=== PATIENT | male | born 1970 | race Asian ===

== ENCOUNTER 2025-07-22 09:07 | Emergency (ER) | payer MEDICAID, SELFPAY ==
--- NOTE | 2025-07-22 09:48 | XR_ITS ---
Examination: CT brain head without contrast. 2-D sagittal coronal reconstructions Date and time of exam: June 22, 2025, 10:15 a.m. INDICATIONS: Onset headache today CTDI: vol (mGy): 55.3 DLP: (mGycm): 1213 Technique: Multiple CT axial sections of the brain have been obtained, 5 mm slice thickness. Contrast has not been administered. 2-D sagittal, coronal reconstructions have been obtained Low dose protocols were performed. One or more of the following dose reduction techniques were used; automated exposure control, adjustment of the mA and/or KV according to patient size, use of iterative reconstruction technique. Findings: No significant ventricular enlargement. Intra-axial or extra-axial hemorrhage density is not seen. No mass effect or midline shift Basal cisterns are not remarkable. Fourth ventricle is midline. Cranial vault intact. Impression: Negative for acute hemorrhage, mass effect or midline shift
--- NOTE | 2025-07-22 09:48 | XR_ITS ---
Examination: CT abdomen with intravenous contrast CT pelvis with intravenous contrast 2-D coronal reconstructions 2-D sagittal reconstructions Date and time of exam: July 22, 2025, 1522 hours INDICATIONS: Generalized abdominal pain today. CTDI: vol (mGy) 11 DLP: (mGycm) 735 Technique: Multiple axial sections of the abdomen and pelvis have been obtained. 64 slice high-resolution scanner used. 3 mm axial sections have been obtained, post intravenous injection 60 cc [id number] 2-D sagittal, coronal reconstructions obtained. Low dose protocols were performed. One or more of the following dose reduction techniques were used; automated exposure control, adjustment of the mA and/or KV according to patient size, use of iterative reconstruction technique. Findings: Fatty infiltration throughout the liver no focal liver or splenic lesions Tiny gallstone No pancreatic or adrenal mass No renal or ureteral calculi, no hydronephrosis Aorta normal size No bowel obstruction Normal appendix Colonic diverticulosis, no diverticulitis. Normal seminal vesicles No significant prostatomegaly Contracted urinary bladder, urinary bladder wall thickening up to 10 mm Prominent osteopenia IMPRESSION: No renal or ureteral calculi, no hydronephrosis Normal appendix Colonic diverticulosis, no diverticulitis Thickening of the urinary bladder wall, consider cystitis
[2025-07-22 09:49] VITALS: BP 142/79; PULSE 79; RESP 16; TEMP 36.9; O2SAT 97; BMI 30.7
--- NOTE | 2025-07-22 09:49 | PD.EDRME ---
Rapid Medical Screening Exam RME Arrival date/time: 07/22/25 09:07 54-year-old male presents to the emergency department today for multiple complaints including but not limited to headache, weight loss, abdominal pain Chief Complaint: Headache Vital signs reviewed by provider: Yes Exam: On exam well-appearing does not appear ill or toxic no acute distress Clinical Impression: Labs and imaging obtained
[2025-07-22 10:08] LABS: Collection Type, Urine Clean Catch
[2025-07-22 10:15] LABS: Basophils # (Auto) 0.1 Thou/mm3 (0.0-0.2); Basophils % (Auto) 1 % (0-2.5); Eosinophils # (Auto) 0.2 Thou/mm3 (0.0-0.5); Eosinophils % (Auto) 2 % (0-10); Hematocrit 42.6 % (41.0-53.0); Hemoglobin 14.3 g/dL (13.5-16.0); Immature Granulocytes Auto 0.04 Thou/mm3 (0.00-0.00); Lymphocytes # (Auto) 2.0 Thou/mm3 (1.0-4.8); Lymphocytes % (Auto) 18 % (10-50); Mean Corpuscular HGB Conc 33.6 g/dl (31.0-37.0); Mean Corpuscular Hemoglobin 29.7 pg (25.0-35.0); Mean Corpuscular Volume 88 fL (80-100); Monocytes # (Auto) 0.8 Thou/mm3 (0.0-0.8); Monocytes % (Auto) 7 % (0-12); Neutrophils # (Auto) 7.7 Thou/mm3 (1.8-7.7); Neutrophils % (Auto) 71 % (37-80); Nucleated Red Blood Cell # 0.00 Thou/mm3 (0.00-0.00); Nucleated Red Blood Cell % 0 /100 WBC (0); Platelet Count 341 Thou/mm3 (140-440); RDW Standard Deviation 38.3 fL (35.1-43.9); Red Blood Count 4.82 Miln/mm3 (4.50-5.90); White Blood Count 10.9 Thou/mm3 (3.8-10.6)
[2025-07-22 10:16] LABS: Bilirubin,Urine Negative (Negative); Blood,Urine Negative (Negative); Clarity,Urine Clear (Clear/Hazy); Color,Urine Yellow (Lt Yel-Yel); Culture Indicated,Urine Not Indicated; Glucose, Urine Negative (Negative); Ketones,Urine Negative (Negative); Leukocyte Esterase,Urine Negative (Negative); Nitrite,Urine Negative (Negative); PH,Urine 6.0 (5.0-7.0); Protein,Urine Trace (Neg - Trace); RBC,Urine 4 /hpf (0-3); Specific Gravity,Urine 1.025 (1.001-1.035); Squamous Epithelial Cell,Urine < 1 /hpf (0-5); Urobilinogen,Urine Negative mg/dL (0.0-1.0); WBC,Urine 1 /hpf (0-5)
--- NOTE | 2025-07-22 10:36 | XR_ITS ---
Examination: Duplex scan of the lower extremity, unilateral right Date and time of exam: July 22, 2025, 1108 hours INDICATIONS: Right leg pain beginning 1 week ago Technique: Duplex scan of the extremity veins using B-mode/grayscale imaging and Doppler spectral analysis and color flow Attention is directed to internal echogenicity, compression and augmentation involving these veins, color flow assessment, spectral analysis Findings: Positive for acute nonocclusive thrombus in the right popliteal and peroneal veins Positive for occlusive DVT in the right popliteal vein IMPRESSION: Significant acute deep vein thrombus as above
[2025-07-22 12:05] LABS: Alanine Aminotransferase 16 U/L (10-49); Albumin, Serum 5.2 gm/dL (3.5-5.0); Alkaline Phosphatase 57 U/L (46-116); Anion Gap 11 (7-16); Aspartate Amino Transferase 18 U/L (0-34); BUN/Creatinine Ratio 10 Ratio (12-20); Bilirubin,Total 0.7 mg/dL (0.3-1.2); Blood Urea Nitrogen 12 mg/dL (9-23); C-Reactive Protein 2.2 mg/dL (0.0-0.9); Calcium 9.7 mg/dL (8.3-10.6); Calcium (Corrected) 9.7 mg/dL (8.5-10.1); Carbon Dioxide 28.4 mMol/L (20.0-31.0); Chloride 102 mMol/L (98-107); Creatinine (Component) 1.2 mg/dL (0.6-1.3); Estimated Creatinine Clearance 85.3 mL/min (>60); Glucose 98 mg/dL (74-106); Lipase 39 U/L (12-53); Osmolality,Calculated 280 (275-295); Potassium 3.9 mMol/L (3.4-5.1); Sodium 141 mMol/L (136-145); eGFR > 60 See Note
[2025-07-22 12:52] LABS: Albumin/Globulin Ratio 1.4 (1.2-2.2); Globulin 3.6 gm/dL (2.3-3.5); Total Protein 8.8 gm/dL (5.7-8.2)
[2025-07-22 13:21] LABS: INR 1.0 (0.9-1.3); Partial Thromboplastin Time 27.1 Seconds (22.0-36.0); Prothrombin Time 10.8 Seconds (9.0-12.2)
[2025-07-22 13:42] VITALS: BP 150/90; PULSE 80; RESP 18; TEMP 36.7; O2SAT 100
[2025-07-22 15:00] VITALS: BP 142/78; PULSE 78; RESP 18; TEMP 36.7; O2SAT 96
--- NOTE | 2025-07-22 16:24 | EDNOTE_ITS ---
ED General RME/HPI General Chief complaint: Headache Stated complaint: DIFF EATING, R) CALF PAIN, HEADACHE, GOUT Time Seen by Provider: 07/22/25 10:37 Arrival date/time: 07/22/25 09:07 RME / HPI RME / HPI narrative: 07/22/25 09:07 54-year-old male presents to the emergency department today for multiple complaints including but not limited to headache, weight loss, abdominal pain DR. LISA MAIN ED EVALUATION 54 year old male with history of hypertension presents to the ED for evaluation of multiple complaints. Patient reports diffuse abdominal discomfort that is accompanied by decreased appetite and nausea (if eats more than 1 meal a day). Reports he has changed his diet to include more fruits and vegetable with no change in symptoms. Patient also complains of bilateral ankle pain also beginning two months ago. States the ankle pain first began in the left ankle and initially thought was sprained. However, noted several days later he began having the same pain in his right ankle. States the ankle pain is aggravated with moving his foot side to side. Adds since onset of ankle pain, he spends most of his day laying in bed or sitting due to the pain. Denies any associated ankle redness or increased warmth. No injury or trauma. Lastly, he also complains of a throbbing tightness pain to his right calf beginning 4 months ago after a deep tissue massage. States the pain had improved however returned 2 months ago. States the pain is aggravated with touching his calf. No known modifying factors. Denies any blood or black stools. Patient denies any urinary symptoms however does note several weeks ago he had a burning sensation in his urethra with very small amount of discharge that had improved. Exam: On exam well-appearing does not appear ill or toxic no acute distress Impression: Labs and imaging obtained Related Data Previous Rx's ?Medication ?Instructions ?Recorded albuterol sulfate 90 mcg/actuation 2 puff inhalation Q 6H PRN 09/23/17 breath activated powder inhaler shortness of breath or wheezing #1 ea apixaban 5 mg (74 tabs) tablets in 5 mg PO BID #74 tab s 07/22/25 a dose pack (Eliquis DVT-PE Treat 30D Start) Allergies Allergy/AdvReac Type Severity Reaction Status Date / Time No Known Allergies Allergy Verified 07/22/25 09:11 Review of Systems Review of Systems Systems Reviewed: All systems reviewed, normal except as documented Past Medical History Past Medical History CARDIAC: Positive Hypercholesterolemia and Hypertension RESPIRATORY: Positive Respiratory Disorders (inhalation of sulfuric acid) GASTROINTESTINAL: Positive Gastrointestinal Disorders and Hiatal Hernia (inguinal) MUSCULOSKELETAL: Positive Musculoskeletal Disorders (rotator cuff), Arthritis (mild) and Gout Social History SMOKING STATUS: Never smoker ED Exam Narrative Physical exam: GENERAL APPEARANCE: alert and oriented x 4, well-developed, well-nourished, no acute distress HEENT: Normocephalic, atraumatic; pupils equal, round, reactive to light; EOMI; mucous membranes pink, moist; oropharynx clear NECK: Supple LUNGS: CTABL; no wheezes, no rales, no rhonchi HEART: Regular rate, regular rhythm; normal S1, S2; no murmurs ABDOMEN: non distended; normal BS; soft, no tenderness, no guarding, no rebound; no masses, no organomegaly, no hernia BACK: no CVA tenderness EXTREMITIES: atraumatic; no edema NEUROLOGIC: awake; alert and oriented x4; cranial nerves II-XII grossly intact; no focal sensory or motor deficits PSYCHIATRIC: appropriate mood and affect SKIN: warm, dry, normal color; no rashes Course Quality Measures none Orders Category Date Time Status CT Screening NOW Care 07/22/25 09:[address] abdomen pelvis w con Stat Exams 07/22/25 09:[address] head/brain wo con Stat Exams 07/22/25 09:48 Completed US venous doppler LE RT Stat Exams 07/22/25 10:36 Completed CBC Stat Lab 07/22/25 10:02 Completed CRP [C-Reactive Protein] Stat Lab 07/22/25 10:02 Completed Chlamydia/GC/TV - PCR Stat Lab 07/22/25 Ordered Comprehensive Metabolic Panel Stat Lab 07/22/25 10:02 Completed Lipase Stat Lab 07/22/25 10:02 Completed PT [Prothrombin Time with INR] Stat Lab 07/22/25 10:02 Completed PTT [Partial Thromboplastin Time] Stat Lab 07/22/25 10:02 Completed UA, C/S IF [Urinalysis, C/S if Indicated] Stat Lab 07/22/25 10:00 Completed Vital Signs Vital signs: Vital Signs Temperature 98.4 F 07/22/25 09:49 Pulse Rate 79 07/22/25 09:49 Respiratory Rate 16 07/22/25 09:49 Blood Pressure 142/79 H 07/22/25 09:49 Pulse Oximetry (%) 97 07/22/25 09:49 Oxygen Delivery Method Room Air 07/22/25 09:49 Discharge Plan Plan Patient Disposition: HOME (Self Care) Prescriptions/Referrals Prescriptions/Med Rec: Mauricio Ricci DVT-PE Treat 30D Start 5 mg (74 tabs) tablets,dose pack 5 mg PO BID Qty: 74 0RF No Action albuterol sulfate 90 mcg/actuation aerosol powdr breath activated 2 puff INH Q6H PRN (Reason: shortness of breath or wheezing) Qty: 1 0RF Rx Instructions: administer with spacer Referrals: La Castillo MD [Primary Care Provider] - In 1 week Problem List Clinical Impression: Acute deep vein thrombosis (DVT) of right popliteal vein Patient/Caregiver Discharge Instructions Education Materials: Venous Thromboembolism Additional Instructions: Follow up with your doctor for referral to gastroenterology for screening colonoscopy and further evaluation of appetite Print Language: Taiwanese Stand Alone Forms: Celina Award Info., Patient Portal Info Letter MDM Narrative MDM hospital course (for use when minimal MDM required): Bianca Fontana am scribing for and in the presence of Dr. Lisa. Clinical Information Provided by: patient Medical Records reviewed [facility] Meds/Rx considered, not ordered None Labs/Rad/Tests considered, not ordered None Chronic Illness/Social Conditions which may negatively complicate care or outcome(s)-explain: None or not applicable EKG EKG not done Labs Lab(s) Interpretation(s): WBC 10.9, PT/PTT is unremarkable, CRP is 2.2 Imaging Imaging Interpretation(s): Ordering Physician: Jacek SEALS)Bertram NP Date of Service: 07/22/25 Procedure(s): CT abdomen pelvis w con Accession Number(s): [id number] cc: Bertram Read NP, NP; La Castillo MD; Raman Figueroa MD~ Examination: CT abdomen with intravenous contrast CT pelvis with intravenous contrast 2-D coronal reconstructions 2-D sagittal reconstructions Date and time of exam: July 22, 2025, 1522 hours INDICATIONS: Generalized abdominal pain today. CTDI: vol (mGy) 11 DLP: (mGycm) 735 Technique: Multiple axial sections of the abdomen and pelvis have been obtained. 64 slice high-resolution scanner used. 3 mm axial sections have been obtained, post intravenous injection 60 cc [id number] 2-D sagittal, coronal reconstructions obtained. Low dose protocols were performed. One or more of the following dose reduction techniques were used; automated exposure control, adjustment of the mA and/or KV according to patient size, use of iterative reconstruction technique. Findings: Fatty infiltration throughout the liver no focal liver or splenic lesions Tiny gallstone No pancreatic or adrenal mass No renal or ureteral calculi, no hydronephrosis Aorta normal size No bowel obstruction Normal appendix Colonic diverticulosis, no diverticulitis. Normal seminal vesicles No significant prostatomegaly Contracted urinary bladder, urinary bladder wall thickening up to 10 mm Prominent osteopenia IMPRESSION: No renal or ureteral calculi, no hydronephrosis Normal appendix Colonic diverticulosis, no diverticulitis Thickening of the urinary bladder wall, consider cystitis Dictated By: Raman Figueroa MD Signed By: <Electronically signed by Raman Figueroa MD in OV> 07/22/25 1543 Ordering Physician: Bertram Read NP, NP Date of Service: 07/22/25 Procedure(s): CT head/brain wo [facility] Accession Number(s): [id number] cc: Bertram Read NP, NP; La Castillo MD; Raman Figueroa MD~ Examination: CT brain head without contrast. 2-D sagittal coronal reconstructions Date and time of exam: June 22, 2025, 10:15 a.m. INDICATIONS: Onset headache today CTDI: vol (mGy): 55.3 DLP: (mGycm): 1213 Technique: Multiple CT axial sections of the brain have been obtained, 5 mm slice thickness. Contrast has not been administered. 2-D sagittal, coronal reconstructions have been obtained Low dose protocols were performed. One or more of the following dose reduction techniques were used; automated exposure control, adjustment of the mA and/or KV according to patient size, use of iterative reconstruction technique. Findings: No significant ventricular enlargement. Intra-axial or extra-axial hemorrhage density is not seen. No mass effect or midline shift Basal cisterns are not remarkable. Fourth ventricle is midline. Cranial vault intact. Impression: Negative for acute hemorrhage, mass effect or midline shift Dictated By: Raman Figueroa MD Signed By: <Electronically signed by Raman Figueroa MD in OV> 07/22/25 1030 Ordering Physician: Jcaek SEALS),Bertram BOWEN Date of Service: 07/22/25 Procedure(s): US venous doppler LE RT Accession Number(s): [id number] cc: Jacek SEALS),Bertram BOWEN; La Castillo MD; Raman Figueroa MD~ Examination: Duplex scan of the lower extremity, unilateral right Date and time of exam: July 22, 2025, 1108 hours INDICATIONS: Right leg pain beginning 1 week ago Technique: Duplex scan of the extremity veins using B-mode/grayscale imaging and Doppler spectral analysis and color flow Attention is directed to internal echogenicity, compression and augmentation involving these veins, color flow assessment, spectral analysis Findings: Positive for acute nonocclusive thrombus in the right popliteal and peroneal veins Positive for occlusive DVT in the right popliteal vein IMPRESSION: Significant acute deep vein thrombus as above Dictated By: Raman Figueroa MD Signed By: <Electronically signed by Raman Figueroa MD in OV> 07/22/25 1141 Medication Administration(s) None Diagnosis Diagnoses ruled out and/or further discussions: DVT
[2025-07-22 17:48] VITALS: BP 139/85; PULSE 78; RESP 18; TEMP 36.7; O2SAT 100
[2025-07-23 12:43] LABS: Chlamydia trachomatis PCR Negative (Not Detect); Neisseria Gonorrhoeae DNA PCR Negative (Not Detect); Trichomonas Negative (Negative)
== END 2025-07-22 17:45 | disposition home or self-care (01) ==
PROVIDERS: Nurse Practitioner Primary Care; Emergency Provider Emergency Medicine; PCP Internal Medicine
DX: I82.431 Acute embolism and thrombosis of right popliteal vein (principal); R51.9 Headache, unspecified; K57.30 Diverticulosis of large intestine without perforation or abscess without bleeding; N32.89 Other specified disorders of bladder
CPT/HCPCS: 36415; 70450; 74177; 80053; 81001; 83690; 85025; 85610; 85730; 86140; 87491; 87591; 87661; 93971; 99283; A4649; Q9967

== ENCOUNTER → 2025-07-30 | Outpatient (CLI) | payer MEDICAID, SELFPAY ==
--- NOTE | 2025-07-30 10:08 | XR_ITS ---
EXAMINATION: Lumbar spine 3 views TECHNIQUE: AP and lateral: Lateral lower lumbar spine 3 views Date and time: July 30, 2025, 1027 hours INDICATIONS: Back pain beginning 5 years ago FINDINGS: Satisfactory alignment lumbar vertebral bodies No lumbar fracture Mild disc narrowing L4-L5 Moderate disc narrowing L5-S1 No spondylolisthesis IMPRESSION: Moderate degenerative disc disease L5-S1
== END | disposition home or self-care (01) ==
PROVIDERS: PCP Internal Medicine; Referring Provider Internal Medicine; Visit Provider Internal Medicine
DX: M51.370 Other intervertebral disc degeneration, lumbosacral region with discogenic back pain only (principal)
CPT/HCPCS: 72100

== ENCOUNTER → 2025-08-01 | Outpatient (CLI) | payer MEDICAID, SELFPAY ==
--- NOTE | 2025-08-01 10:34 | XR_ITS ---
EXAMINATION: PA lateral chest 2 views TECHNIQUE: Upright PA lateral chest 2 views Date and time: August 01, 2025, 1054 hours INDICATIONS: Coughing 3 months with weight loss FINDINGS: Normal heart size Lungs are clear. Moderate thoracic spondylosis IMPRESSION: No active disease
== END | disposition home or self-care (01) ==
LOC: CDIM 10:23
DX: R05.1 Acute cough (principal)
CPT/HCPCS: 71046